=== PATIENT | female | born 1995 | race Caucasian/White ===

== ENCOUNTER 2019-08-07 15:39 | Observation (INO) | END 2019-08-07 16:59 | disposition home or self-care (01) | LOC: 1NENULAB | PROVIDERS: ADMIT Advanced Practice Midwife; ATTEND Advanced Practice Midwife ==

== ENCOUNTER 2019-09-06 18:17 | Inpatient (IN) ==
[2019-09-06 16:03] LABS: Amphetamine Screen,Urine Negative ng/mL (Cutoff=1000); Barbiturate Screen,Urine Negative ng/mL (Cutoff=200); Benzodiazepines Screen,Urine Negative ng/mL (Cutoff=200); Cannabinoid Screen,Urine Negative ng/mL (Cutoff = 50); Cocaine Screen,Urine Negative ng/mL (Cutoff= 300); Opiate Screen,Urine Negative ng/mL (Cutoff=300); Phencyclidine Screen,Urine Negative ng/mL (Cutoff=25)
[2019-09-06 17:58] LABS: Basophils % 0.2 %; Eosinophils % 0.4 %; Hematocrit 35.5 % (35.3-44.9); Hemoglobin 12.4 g/dL (11.5-15.4); Immature Granulocytes % 0.6 % (0-4); Lymphocytes # 1.1 K/mcL (0.6-4.6); Lymphocytes % 12.8 %; Mean Corpuscular HGB Conc 34.9 g/dL (31.6-35.5); Mean Corpuscular Hemoglobin 31.8 pg (28.0-33.3); Mean Platelet Volume 11.1 fL (9.4-12.4); Monocytes # 0.6 K/mcL (0.0-1.3); Monocytes % 6.5 %; Neutrophils # 6.7 K/mcL (1.6-8.9); Platelet Count 166 K/mcL (140-400); Red Cell Distribution Width 12.9 % (11.5-14.5); Segmented Neutrophils % 79.5 %; White Blood Count 8.4 K/mcL (4.3-11.1)
[~2019-09-06 18:17] MED LIST: *HR* Nalbuphine 10 MG/ML AMPUL IVP PRN; Azithromycin 500 MG in 0.9 % Sodium Chloride 250 ML IVPB PRN; EPHEDrine 50 MG/ML VIAL IVP PRN; Famotidine 20 MG/2 ML VIAL IVP PRN; Lidocaine 1% 20 ML MDV INFILT PRN; Metoclopramide 10 MG/2 ML VIAL IVP PRN; Naloxone 0.4 MG/ML INJ IVP PRN; Ondansetron 4 MG/2 ML VIAL IVP PRN; Ringers Solution, Lactated 1,000 ML IVC SCH
[2019-09-06] MEDS ORDERED: Oxytocin 20 units/ LR 1000 mL 20 UNIT/1,000 ML BAG IVC SCH (21:45)
[2019-09-06] MEDS ORDERED: *HR* FentaNYL (PF) 100 MCG/2 ML VIAL ONE (23:29)
[2019-09-06] MEDS ORDERED: Ropivacaine/PF 0.2% 20 ML VIAL ONE (23:29)
[2019-09-06] MEDS: Epidural Premix (fent/bupiv) 110 ML EP SCH (23:48)
[2019-09-07] MEDS: Epidural Premix (fent/bupiv) 110 ML EP SCH (06:05)
[2019-09-07] MEDS ORDERED: Ibuprofen 600 MG TABLET PO ONE (11:25)
[2019-09-07] MEDS ORDERED: Benzocaine/Menthol 56 GM AEROSOL SPRAY TP PRN (12:50)
[2019-09-07] MEDS ORDERED: Oxytocin 20 units/ LR 1000 mL 20 UNIT/1,000 ML BAG IVC SCH (12:50)
[2019-09-07] MEDS ORDERED: Lanolin 7 G OINT...G. TP PRN (12:50)
[2019-09-07] MEDS ORDERED: Rho Immune Globulin 1,500 UNIT SYRINGE IM PRN (12:50)
[2019-09-07] MEDS ORDERED: Acetaminophen 325 MG TABLET PO PRN (12:50)
[2019-09-07] MEDS: Ibuprofen 600 MG TABLET PO PRN (22:08)
[2019-09-08] MEDS: Ibuprofen 600 MG TABLET PO PRN ×2 (05:20→10:56)
[2019-09-08] MEDS ORDERED: Prenatal Vit/FA 1 EACH TABLET PO SCH (09:00)
[2019-09-08 09:51] VITALS: BP 119/72
== END 2019-09-08 12:10 | disposition home or self-care (01) | DRG 807 ==
LOC: 1NENULAB → 1NENUOBS 09-07 13:47
PROVIDERS: ADMIT Advanced Practice Midwife; ATTEND Advanced Practice Midwife